=== PATIENT | male | born 1970 | race Caucasian/White ===

== ENCOUNTER → 2021-04-17 | Outpatient (CLI) | payer OTHER ==
--- NOTE | 2021-04-17 15:00 | KCIC ---
Examination: MRI of the right shoulder without contrast HISTORY: History of right shoulder pain, limited range of motion COMPARISON: None TECHNIQUE: Multiplanar, multisequence MR imaging of the right shoulder performed without contrast. Exposure: One or more of the following individualized dose reduction techniques were utilized for thi s examination: 1. Automated exposure control 2. Adjustment of the mA and/or kV according to patient size 3. Use of iterative reconstruction technique FINDINGS: The long head of the biceps tendon within the bicipital groove. The attachment of the long head the b iceps tendon to the superior labral anchor grossly appears intact. The attachment of the subscapulari s tendon, supraspinatus, infraspinatus tendon grossly appears intact. The muscle bulk grossly appears unremarkable. The visualized labrum grossly appears unremarkable. Fat is identified in the rotator i nterval. IMPRESSION: No evidence of rotator cuff tear. Electronically signed by: Kory Ye MD (04/17/2021 2:58 PM) [id number]
== END ==
LOC: KCIC MRI 12:21
PROVIDERS: ATTEND Family Medicine
DX: M25.511 Pain in right shoulder (principal)
CPT/HCPCS: 73221

== ENCOUNTER → 2021-05-20 | Outpatient (CLI) | payer OTHER ==
[~2021-05-20] MED LIST: BUPIVACAINE MPF 0.5% 10 ML VIAL. INT ART ONE; GADOTERATE 5 MMOL/10ML VIAL. INT ART ONE; IOHEXOL 300 MG/ML 50 ML VIAL. INT ART ONE; LIDOCAINE 1% Multi-Dose 20 ML VIAL. ID ONE
--- NOTE | 2021-05-20 13:59 | KCIC ---
DG ARTHROGRAM SHOULDER RIGHT History: Reason: Chronic Rt shoulder pain, rotator cuff tear. Decreased ROM / Spl. Instructions: 5mL Omni 300,5mL Bupivicaine,10mL Saline,0.2mL Clariscan,35 sec fl, 1image / History: PROCEDURE: The risks, alternatives, benefits of the procedure discussed with the patient. Written informed cons ent is obtained. A timeout is performed. Skin site was chosen under fluoroscopy. This area is prepped and draped in normal sterile fashion. 1% Lidocaine is used for superficial and deep local anesthesia. Using intermittent fluoroscopy, a 22 -gauge spinal needle is advanced into the joint space. Then a dilute gadolinium solution is instilled , total volume approximately 10 mL. The needle was removed. Hemostasis is achieved. The patient to lerated the procedure well. There is no immediate complication. Patient was transferred to MRI. Fluoroscopy time 35 seconds Fluoroscopic images: 1. IMPRESSION: 1. Fluoroscopically guided right shoulder arthrogram prior to MRI. Electronically signed by: Aly Lynch DO (05/20/2021 1:57 PM) [id number]
--- NOTE | 2021-05-20 15:27 | KCIC ---
Examination: MR arthrogram right shoulder HISTORY: History of chronic right shoulder pain, decreased range of motion COMPARISON: 04/17/2021 TECHNIQUE: Multiplanar, multisequence MR imaging of the right shoulder performed after arthrogram inj ection FINDINGS: The long head of the biceps tendon within the bicipital groove. The attachment of the long head the b iceps tendon to the superior labral anchor grossly appears intact. The attachment of the subscapulari s tendon grossly appears intact. The attachment of the supraspinatus, infraspinatus tendon grossly ap pears intact The visualized labrum grossly appears unremarkable. The muscle bulk grossly appears unremarkable. The acromion is type II. Mild obscuration of fat in the rotator interval. Impression: 1. No evidence of rotator cuff tear or labral tear. 2. Subtle obscuration of fat in the rotator interval. Correlate for adhesive capsulitis. Electronically signed by: Kory Ye MD (05/20/2021 3:24 PM) [id number]
== END | disposition home or self-care (01) ==
LOC: KCIC 12:49
PROVIDERS: ATTEND Family Medicine
DX: M75.101 Unspecified rotator cuff tear or rupture of right shoulder, not specified as traumatic (principal); M25.511 Pain in right shoulder; M75.01 Adhesive capsulitis of right shoulder; Z79.899 Other long term (current) drug therapy
CPT/HCPCS: 23350; 73222; 77002; A9575; J3490; Q9967